=== PATIENT | female | born 1955 | race Caucasian/White ===

== ENCOUNTER 2017-01-29 17:49 | Inpatient (IN) | payer MEDICARE ==
--- NOTE | 2017-01-29 18:02 | ER Document Report ---
ED Medical Screen (RME) - General Stated Complaint: DIARRHEA,VOMITING Notes: 61 yo female c/o diarrhea x 2 weeks, vomiting x 1 day. + hives today no blood or mucus in diarrhea. no fever. no abdominal pain pt recently finished course of doxycycline for finger infection pt hypotensive 73/51, HR 107
[2017-01-29 18:39] LABS: HEMATOCRIT 45.2 % (36.0-47.0); HEMOGLOBIN 14.5 g/dL (12.0-15.5); HGB HCT DIFFERENCE -1.7; MEAN CORPUSCULAR HEMOGLOBIN 26.9 pg (27.0-33.4); MEAN CORPUSCULAR HGB CONC 32.2 g/dL (32.0-36.0); MEAN CORPUSCULAR VOLUME 84 fl (80-97); RED CELL DISTRIBUTION WIDTH 13.3 % (11.5-14.0); WHITE BLOOD COUNT 23.2 10^3/uL (4.0-10.5)
[2017-01-29 18:56] LABS: ALANINE AMINOTRANSFERASE 22 U/L (9-52); ALBUMIN 3.1 g/dL (3.5-5.0); ALKALINE PHOSPHATASE 74 U/L (38-126); ANION GAP 18 (5-19); ASPARTATE AMINO TRANSFERASE 21 U/L (14-36); BILIRUBIN,DIRECT 0.4 mg/dL (0.0-0.4); BILIRUBIN,TOTAL 0.7 mg/dL (0.2-1.3); BLOOD UREA NITROGEN 29 mg/dL (7-20); CALCIUM 8.9 mg/dL (8.4-10.2); CARBON DIOXIDE 21 mmol/L (22-30); CHLORIDE 93 mmol/L (98-107); CREATININE RESULT 2.45 mg/dL (0.52-1.25); GLUCOSE 154 mg/dL (75-110); POTASSIUM 4.9 mmol/L (3.6-5.0); SODIUM 131.9 mmol/L (137-145); TOTAL PROTEIN 5.8 g/dL (6.3-8.2)
[2017-01-29 19:17] LABS: BASOPHILS % (MANUAL) 0 % (0-2); EOSINOPHILS % (MANUAL) 0 % (0-6); LYMPHOCYTES % (MANUAL) 2 % (13-45); TOTAL CELLS COUNTED 100
[2017-01-29 19:26] LABS: TOXIC GRANULATION 1+; TOXIC VACUOLATION PRESENT
[2017-01-29 19:27] LABS: BAND NEUTROPHILS % (MANUAL) 23 % (3-5); OVALOCYTES SLIGHT; POIKILOCYTOSIS SLIGHT
[2017-01-29] MEDS ORDERED: RINGERS SOLUTION,LACTATED 1,000 ML IV ONE (20:47)
--- NOTE | 2017-01-29 20:56 | ER Document Report ---
ED GI/ - General Mode of Arrival: Ambulatory Information source: Patient TRAVEL OUTSIDE OF THE [place] IN LAST 30 DAYS: No - HPI Patient complains to provider of: Diarrhea Associated symptoms: Other - See above <ROSA M GARCÍA - Last Filed: 01/29/17 21:35> <CHIDI AVERY - Last Filed: 01/30/17 03:31> - General Chief Complaint: Diarrhea Stated Complaint: DIARRHEA,VOMITING Notes: Patient is a 61 year old female, with a past medical history including MS, who presents to the emergency department complaining of diarrhea onset 2 weeks ago. Patient had surgery on her right 3rd finger last month and was put on doxycycline which she was subsequently taken off of 4 days later, then was put on clindamycin which she finished about 12 days ago. Patient also complains of vomiting, rash with diffuse itching, and nausea. Patient states that she started taking a probiotic smoothie to help with the diarrhea 2 weeks ago which did not help and she stopped after a week. Patient reports this past week she has been unable to eat well or drink. Patient denies abdominal pain. Patient states that along with her medications she takes a Copaxone shot. Patient's PCP , who recently retired, is back in [place], she is currently visiting the area. ( ROSA M GARCÍA) - Related Data Allergies/Adverse Reactions: sulfamethoxazole [From Bactrim] Adverse Reaction (Unknown, Verified 01/29/17 23: 24) INTERACTION W/MS Penicillins Adverse Reaction (Verified 01/29/17 17:59) trimethoprim [From Bactrim] Adverse Reaction (Verified 01/29/17 23:23) Home Medications: Current Home Medications Cholecalciferol (Vitamin D3) [Vitamin D3 2000 unit Tablet] 1 tab PO BID [History] Dalfampridine [Ampyra] 1 tab PO BID 01/30/17 [History] Glatiramer Acetate [Copaxone Inj/Pf 20 mg/1Ml Disp Syrg] 1 dose SUBCUT DAILY [History] Levothyroxine Sodium [Synthroid 0.075 mg Tablet] 1 tab PO QAM 01/30/17 [History] Lutein/Zeaxanthin [Lutein-Zeaxanthin 25-5 mg Sfgl] 1 cap PO QAM 01/30/17 [ History] Naproxen 1 tab PO BID 01/30/17 [History] Omeprazole 1 cap PO QAM 01/30/17 [History] Tizanidine HCl [Zanaflex] 1 cap PO BID 01/30/17 [History] Venlafaxine HCl [Venlafaxine HCl ER] 1 cap PO QAM 01/30/17 [History] Past Medical History - General Information source: Patient - Social History Smoking Status: Never Smoker Frequency of alcohol use: None Drug Abuse: None Family History: Reviewed & Not Pertinent Patient has suicidal ideation: No Patient has homicidal ideation: No Musculoskeltal Medical History: Reports Hx Multiple Sclerosis Past Surgical History: Reports: Hx Orthopedic Surgery - R 3rd finger <ROSA M GARCÍA - Last Filed: 01/29/17 21:35> Review of Systems - Review of Systems Constitutional: No symptoms reported EENT: No symptoms reported Cardiovascular: No symptoms reported Respiratory: No symptoms reported Gastrointestinal: See HPI, Diarrhea, Nausea, Vomiting. denies: Abdominal pain Genitourinary: No symptoms reported Female Genitourinary: No symptoms reported Musculoskeletal: No symptoms reported Skin: See HPI, Rash - with itching Hematologic/Lymphatic: No symptoms reported Neurological/Psychological: No symptoms reported -: Yes All other systems reviewed and negative <ROSA M GARCÍA - Last Filed: 01/29/17 21:35> Physical Exam - Vital signs Interpretation: Hypotensive - General General appearance: Appears well, Alert - HEENT Head: Normocephalic, Atraumatic Mucous membranes: Dry - Respiratory Respiratory status: No respiratory distress Chest status: Nontender Breath sounds: Normal Chest palpation: Normal - Cardiovascular Rhythm: Regular Heart sounds: Normal auscultation Murmur: No - Abdominal Inspection: Normal Distension: No distension Bowel sounds: Normal Tenderness: Nontender Organomegaly: No organomegaly - Neurological Neuro grossly intact: Yes Cognition: Normal Orientation: AAOx4 [place] Coma Scale Eye Opening: Spontaneous [place] Coma Scale Verbal: Oriented [place] Coma Scale Motor: Obeys Commands [place] Coma Scale Total: 15 Speech: Normal - Psychological Associated symptoms: Normal affect, Normal mood - Skin Skin Temperature: Warm Skin Moisture: Dry Skin irregularity: Rash - Diffuse urticaria <ROSA M GARCÍA - Last Filed: 01/29/17 21:35> Course - Laboratory Result Diagrams: 01/29/17 18:16 01/29/17 18:16 <ROSA M GARCÍA - Last Filed: 01/29/17 21:35> - Laboratory Result Diagrams: 01/30/17 00:40 01/30/17 00:40 <CHIDI AVERY - Last Filed: 01/30/17 03:31> - Re-evaluation Re-evalutation: 01/29 Patient comes in with hypotension, lightheadedness, diarrhea for 2 weeks, and nausea. Symptoms and blood work consistent with C. difficile colitis. I have been unable to obtain a stool sample from this patient. Patient also with some acute renal insufficiency. Patient is responding well to fluid boluses. Patient also has a rash which she says is due to stress. She has been given Benadryl with good response. Patient due to hypotension, leukocytosis will be admitted to the hospital service for evaluation. Patient is amenable to this plan. Stable at time of admission. Flagyl was started. (CHIDI AVERY ) - Vital Signs Vital signs: Temp Pulse Resp BP Pulse Ox 98.1 F 105 H 17 101/57 L 96 01/30/17 00:00 01/29/17 18:04 01/30/17 02:00 01/30/17 02:00 01/30/17 02:00 - Laboratory Laboratory results interpreted by me: 01/29/17 01/29/17 01/29/17 18:16 18:16 18:16 WBC 23.2 H RBC 5.40 H MCH 26.9 L Band Neutrophils % 23 H Lymphocytes % (Manual) 2 L Metamyelocytes % 1 H Abs Neuts (Manual) 21.3 H Sodium 131.9 L Chloride 93 L Carbon Dioxide 21 L BUN 29 H Creatinine 2.45 H Est GFR ( Amer) 24 L Est GFR (Non-Af Amer) 20 L Glucose 154 H Magnesium 1.5 L Creatine Kinase CK-MB (CK-2) Total Protein 5.8 L Albumin 3.1 L 01/29/17 01/29/17 18:16 18:16 WBC RBC MCH Band Neutrophils % Lymphocytes % (Manual) Metamyelocytes % Abs Neuts (Manual) Sodium Chloride Carbon Dioxide BUN Creatinine Est GFR ( Amer) Est GFR (Non-Af Amer) Glucose Magnesium Creatine Kinase 159 H CK-MB (CK-2) 6.95 H Total Protein Albumin Critical Care Note - Critical Care Note Total time excluding time spent on procedures (mins): 35 - evaluation and management of hypotension, multiple re-evaluations, coordination of admission, counseling patient <CHIDI AVERY - Last Filed: 01/30/17 03:31> Discharge <ROSA M GARCÍA - Last Filed: 01/29/17 21:35> - Discharge Admitting Provider: Hospitalist Unit Admitted: IMCU <CHIDI AVERY - Last Filed: 01/30/17 03:31> - Discharge Clinical Impression: Nausea, Multiple sclerosis ARF (acute renal failure) Qualifiers: Acute renal failure type: unspecified Qualified Code(s): N17.9 - Acute kidney failure, unspecified Diarrhea Qualifiers: Diarrhea type: unspecified type Qualified Code(s): R19.7 - Diarrhea, unspecified Disposition: ADMITTED INPATIENT Scribe Attestation: 01/30/17 03:31 I personally performed the services described in the documentation, reviewed and edited the documentation which was dictated to the scribe in my presence, and it accurately records my words and actions. (CHIDI AVERY) Scribe Documentation - Scribe Written by Pablo:: pablo Sandhu, 01/29/17, [id number] acting as scribe for :: Tao <ROSA M GARCÍA - Last Filed: 01/29/17 21:35>
[2017-01-29] MEDS ORDERED: NORMAL SALINE 1000 ML 1,000 ML IV ONE (20:59)
[2017-01-29] MEDS ORDERED: ONDANSETRON HCL INJ/PF 4 MG/2 ML SDV IV ONE (21:47)
[2017-01-29] MEDS ORDERED: DIPHENHYDRAMINE HCL 50 MG/ML VIAL IV ONE (21:47)
[2017-01-29] MEDS ORDERED: METRONIDAZOLE 500 MG/NS RTU 100 ML IV ONE (21:49)
[2017-01-29] MEDS ORDERED: NORMAL SALINE 1000 ML 2,000 ML IV ONE (22:50)
[2017-01-29 22:53] LABS: ADD ON TESTING BLD IN LAB ACKNOWLEDGE
[2017-01-29 23:19] LABS: MAGNESIUM 1.5 mg/dL (1.6-2.3)
--- NOTE | 2017-01-29 23:35 | PDOC H&P ---
History of Present Illness Admission Date/PCP: 01/29/17 22:02 PCPD None Patient complains of: N/V/D History of Present Illness: SOFY CARRASCO is a 61 year old female female from [place], visiting relatives in the area, with underlying multiple sclerosis, easy bruising, arthritis, hypothyroidism, and mild anxiety and depression, without suicidal or homicidal ideation, who presents to the emergency room for evaluation of above complaints. Last month underwent right third finger surgery. Was put on doxycycline postoperatively. Was taken off after 4 days due to swelling of the finger and put on a one-week course of clindamycin, which she finished about 12 days ago. She describes a 2 week history of multiple episodes of diarrhea, combined with nausea and some vomiting, although mostly the vomiting as dry heaves. No blood in the emesis or diarrhea. She had a subjective fever 2 days ago, although no ami chills. Diarrhea is basically new for her. No history of C. difficile. Was noted to be hypotensive, with systolic pressures in the 70s upon initial arrival, but has responded nicely to IV fluid. Denies abdominal pain with the diarrhea. noted to have a serpiginous macular slightly erythematous rash, primarily on the anterior aspect of her lower extremities, and also the ventral surface of her forearms. Quite difficult to pin the patient down exactly about this rash. Gives contradictory statements to both myself and the emergency room physician , but states that she sometimes gets hives with itching, which she experienced last night, along with an occasional rash. Again, a quite difficult historian concerning this rash. Minimal itching today. Currently resting quietly, stating she does feel a bit better. Denies any chronic renal problems. Patient has been discussed with emergency room physician who evaluated the patient. . Laboratory results are listed in [facility] and are reviewed. X-ray summary results renal ultrasound is pending. EKG pending. Social history/personal habits: . 3 children. Unemployed. No use of the back of alcohol or illicit drugs. Allergies/adverse reactions are listed in [facility] and are reviewed. Home medications are reviewed from a handwritten note by the patient and are to be reconciled by nursing staff or compounding pharmacy technician in [facility] [employer]. Home medications initially autopopulated into [employer] may not accurately reflect patient's true medications, dosages, and/or frequencies. Compliant with medications. REVIEW OF SYSTEMS: Constitutional: See history and present illness. Eyes: Wears glasses. ENT: No swallowing problems or complaints. No hearing problems or complaints. Pulmonary: No current complaints. Cardiovascular: No current complaints, including chest pain. Gastrointestinal: See history and present illness. Skin: See history and present illness. Hematologic: Easy bruising. Neurologic: See history and present illness. Decreased light touch sensation in her lower extremities. Sometimes is able to ambulate unassisted, but at other times needs a cane or walker. Musculoskeletal: Joint pain from arthritis. Psychiatric: Mild Anxiety depression; denies suicidal or homicidal ideation. Endocrine: No current complaints, including polyuria. Genitourinary: No current complaints, including dysuria. PHYSICAL EXAMINATION: 5 feet 7 inches tall. 61.8 kg. BMI 21.3 kg/m. Temperature 97.4. Blood pressure 123/64. Pulse 92 and regular. 99% saturation on room air. Respirations are 20 and unlabored. Well-nourished well-developed female appearing approximately her stated age. Appears to feel a bit under the weather, so to speak. Pleasant awake alert and cooperative. Mildly anxious without agitation. Emergency room physician is present in the room for a time and examines the rash noted on patient's extremities, and feels these are consistent with hives. Female emergency room nurse Sanjuana is present. Skin is warm and dry. No subcutaneous nodules palpated. Has several mild excoriations on her upper extremities from scratching. Has scattered irregular somewhat serpiginous bordered slightly inflamed macular areas primarily on the dorsal surfaces of her lower extremities and ventral surfaces of her forearms. No evidence of underlying infection. No weeping or blistering. ENT: Hearing grossly normal to normal conversation. Tongue midline on protrusion pink and slightly tacky. Eyes: No scleral icterus. Pupils equal and reactive to light at 4 mm. [place] conjunctivae. Neck is supple and nontender to gentle active range of motion and palpation. Midline trachea. No palpable thyroid nodule mass enlargement or tenderness. Lymphatic: No palpable cervical or clavicular nodes. Neck and lymphatic exams limited by patient body habitus. Psychiatric: Reasonable insight into acute and chronic medical issues. Oriented to time location and why here. See history and present illness, also. Lungs: Auscultation reveals clear and equal breath sounds bilaterally. No use of accessory respiratory muscles. Cardiovascular: Heart regular rate and rhythm, without gallop murmur or rub. No carotid or abdominal aortic bruits. No ankle or pedal edema. Faintly palpable dorsalis pedis pulses. Abdomen: soft, , slightly distended nontender with positive bowel sounds. Unable to adequately evaluate abdomen for masses or organomegaly due to distention. Extremities: Feet are warm and dry. No calf tenderness to compression. No grossly obvious visual evidence of calf swelling. Gentle manipulation of lower extremities fails to reveal any obvious evidence of injury or instability to knees hips or ankles. Neurologic: Moves upper extremities grossly normally. Patellar reflexes absent. Absent Babinski. Light touch is decreased at her feet, which is a chronic finding and without recent change, according to patient. Dorsiflexion and plantarflexion of feet 5 / 5 and symmetric. Past Medical History Cardiac Medical History: Denies: Congestive Heart Failure, DVT, Myocardial Infarction, Hyperlipidema, Hypertension, Pulmonary Embolism Pulmonary Medical History: Denies: Asthma, Chronic Obstructive Pulmonary Disease (COPD) EENT Medical History: Reports: Eyes - Glasses Denies: Ears, Throat Neurological Medical History: Reports: Multiple Sclerosis Denies: Hemorrhagic CVA, Ischemic CVA, Seizures Endocrine Medical History: Reports: Hypothyroidism Denies: Diabetes Mellitus Type 1, Diabetes Mellitus Type 2, Hyperthyroidism Renal/ Medical History: Reports: None GI Medical History: Denies: Cirrhosis, Gastroesophageal Reflux Disease, Hepatitis, Peptic Ulcer Disease Musculoskeltal Medical History: Reports: Arthritis Skin Medical History: Reports: Other - See history and present illness, 2016. Psychiatric Medical History: Reports: Depression, General Anxiety Disorder Denies: Alcohol Dependency, Substance Abuse, Tobacco Dependency Hematology: Reports: Other - Easy bruising Infectious Medical History: Denies: Hepatitis B, Hepatitis C Past Surgical History Past Surgical History: Reports: Orthopedic Surgery - R 3rd finger, right knee Social History Information Source: Patient, Emergency Med Personnel, [facility] Records Smoking Status: Never Smoker Frequency of Alcohol Use: None Drugs: None - Advance Directive Resuscitation Status: Full Code Surrogate healthcare decision maker:: Kaelyn Carrasco Family History Family History: Reviewed & Not Pertinent Parental Family History Reviewed: Yes Children Family History Reviewed: Yes Sibling(s) Family History Reviewed.: Yes Medication/Allergy Home Medications: RX: Cholecalciferol (Vitamin D3) [D3-2000] 2,000 unit PO QAM 01/30/17 RX: Dalfampridine [Ampyra] 10 mg PO BID 01/30/17 RX: Glatiramer Acetate [Copaxone Inj/Pf 20 mg/1Ml Disp.syrg] 20 mg SQ DAILY RX: Levothyroxine Sodium [Synthroid 0.075 mg Tablet] 0.075 mg PO QAM 01/30/17 RX: Lutein/Zeaxanthin [Lutein-Zeaxanthin 25-5 mg Sfgl] 1 cap PO QAM 01/30/17 RX: Omeprazole 20 mg PO QAM 01/30/17 RX: Tizanidine HCl [Zanaflex] 2 mg PO NOON PRN 01/30/17 RX: Tizanidine HCl [Zanaflex] 2 mg PO QAM 01/30/17 RX: Tizanidine HCl [Zanaflex] 4 mg PO QHS 01/30/17 RX: Venlafaxine HCl [Venlafaxine HCl ER] 150 mg PO QAM 01/30/17 Acidoph/L.bulg/Bif.b/S.thermop [Bacid Caplet] 1 each PO BID #16 tablet 02/03/17 RX: Loperamide HCl [Imodium 2 mg Capsule] 2 mg PO Q6HP PRN capsule 02/03/17 RX: Metronidazole [Flagyl 500 mg Tablet] 500 mg PO Q6H #32 tablet 02/03/17 Allergies/Adverse Reactions: sulfamethoxazole [From Bactrim] Adverse Reaction (Unknown, Verified 01/29/17 23: 24) INTERACTION W/MS Penicillins Adverse Reaction (Verified 01/29/17 17:59) trimethoprim [From Bactrim] Adverse Reaction (Verified 01/29/17 23:23) Physical Exam Vital Signs: Temp Pulse Resp BP Pulse Ox 97.4 F 105 H 19 131/69 H 98 01/29/17 18:04 01/29/17 18:04 01/29/17 21:31 01/29/17 21:31 01/29/17 21:31 Assessment & Plan - Diagnosis (1) Rash Is this a current diagnosis for this admission?: YesPlan: Follow clinically for the present time. (2) Bandemia Is this a current diagnosis for this admission?: YesPlan: Suspected due to underlying C. difficile. Blood and stool cultures. Urine culture also if necessary, with urinalysis pending. (3) Leukocytosis Qualifiers: Leukocytosis type: bandemia Qualified Code(s): D72.825 - Bandemia Is this a current diagnosis for this admission?: YesPlan: As above. Will hold antibiotics for present time, with stool for C. difficile pending. (4) Nausea vomiting and diarrhea Is this a current diagnosis for this admission?: YesPlan: IV fluids. Stool for C. difficile, white cells, and culture and sensitivity pending. I have strongly encouraged patient not to get out of bed without notifying staff , to avoid a fall with injury. Knee high SCDs for DVT prophylaxis, [along with subcutaneous heparin. Impression and plans were discussed with patient, who concurs. Time spent in evaluation and management of patient: 68 minutes. (5) Renal failure Is this a current diagnosis for this admission?: YesPlan: Renal ultrasound pending. IV fluids. Follow-up chemistry. Likely prerenal in origin. (6) Multiple sclerosis Is this a current diagnosis for this admission?: YesPlan: Resume home medications as appropriate once these have been determined and reviewed. - Inpatient Certification Based on my medical assessment, after consideration of the patient's comorbidities, presenting symptoms, or acuity I expect that the services needed warrant INPATIENT care.: Yes I certify that my determination is in accordance with my understanding of Medicare's requirements for reasonable and necessary INPATIENT services [42 CFR 412.3e].: Yes Medical Necessity: Need Close Monitoring Due to Risk of Patient Decompensation, Need For IV Fluids, Need For Continuous Telemetry Monitoring, Risk of Complication if Not Cared For in Hospital, Risk of Diagnosis Which Will Require Inpatient Eval/Care/Monitoring Post Hospital Care: D/C or Transfer Summary
[2017-01-29] MEDS ORDERED: MAGNESIUM SULFATE/D5W 1 G/100 ML RTUPB IV ONE (23:45)
[2017-01-29] MEDS ORDERED: ACETAMINOPHEN 325 MG TABLET PO PRN (23:47)
[2017-01-29 23:58] LABS: CREATINE KINASE MB 6.95 ng/mL (<4.55); TROPONIN I 0.021 ng/mL
[2017-01-30 00:50] LABS: ABSOLUTE MONOCYTES (AUTO) 0.7 10^3/uL (0.1-1.4); ABSOLUTE NEUT (AUTO) 8.9 10^3/uL (1.7-8.2); BASOPHILS % (AUTO) 0.1 % (0-2); EOSINOPHILS % (AUTO) 0.1 % (0-6); HEMATOCRIT 36.6 % (36.0-47.0); HGB HCT DIFFERENCE -0.3; LYMPHOCYTES % (AUTO) 9.8 % (13-45); MEAN CORPUSCULAR HEMOGLOBIN 27.6 pg (27.0-33.4); MEAN CORPUSCULAR HGB CONC 33.1 g/dL (32.0-36.0); MEAN CORPUSCULAR VOLUME 83 fl (80-97); MONOCYTES % (AUTO) 6.1 % (3-13); RED BLOOD COUNT 4.39 10^6/uL (3.72-5.28); RED CELL DISTRIBUTION WIDTH 13.6 % (11.5-14.0); SEGMENTED NEUTROPHILS % (AUTO) 83.9 % (42-78); WHITE BLOOD COUNT 10.6 10^3/uL (4.0-10.5)
[2017-01-30 01:01] LABS: ANION GAP 8 (5-19); BLOOD UREA NITROGEN 32 mg/dL (7-20); CALCIUM 7.4 mg/dL (8.4-10.2); CARBON DIOXIDE 21 mmol/L (22-30); CHLORIDE 103 mmol/L (98-107); CREATININE RESULT 2.26 mg/dL (0.52-1.25); GLUCOSE 123 mg/dL (75-110); POTASSIUM 4.3 mmol/L (3.6-5.0); SODIUM 132.1 mmol/L (137-145)
[2017-01-30 01:03] LABS: HEMOGLOBIN 12.1 g/dL (12.0-15.5)
[2017-01-30] MEDS: NORMAL SALINE 1000 ML 1,000 ML IV PRN ×3 (01:42→20:05)
[2017-01-30 02:18] LABS: ADD ON TESTING BLD IN LAB ACKNOWLEDGE
[2017-01-30 02:26] LABS: CREATINE KINASE 148 U/L (30-135)
[2017-01-30 03:03] LABS: CREATINE KINASE MB 6.45 ng/mL (<4.55)
[2017-01-30 03:04] LABS: TROPONIN I < 0.012 ng/mL
[2017-01-30] MEDS ORDERED: NORMAL SALINE 1000 ML 2,000 ML IV ONE (04:45)
[2017-01-30 06:55] LABS: ABSOLUTE LYMPHOCYTES (AUTO) 1.1 10^3/uL (0.5-4.7); ABSOLUTE MONOCYTES (AUTO) 0.6 10^3/uL (0.1-1.4); ABSOLUTE NEUT (AUTO) 6.5 10^3/uL (1.7-8.2); BASOPHILS % (AUTO) 0.3 % (0-2); EOSINOPHILS % (AUTO) 0.3 % (0-6); HEMATOCRIT 32.8 % (36.0-47.0); HEMOGLOBIN 11.2 g/dL (12.0-15.5); HGB HCT DIFFERENCE 0.8; LYMPHOCYTES % (AUTO) 13.6 % (13-45); MEAN CORPUSCULAR HEMOGLOBIN 28.3 pg (27.0-33.4); MEAN CORPUSCULAR HGB CONC 34.1 g/dL (32.0-36.0); MEAN CORPUSCULAR VOLUME 83 fl (80-97); MONOCYTES % (AUTO) 6.8 % (3-13); RED BLOOD COUNT 3.95 10^6/uL (3.72-5.28); RED CELL DISTRIBUTION WIDTH 13.9 % (11.5-14.0); WHITE BLOOD COUNT 8.2 10^3/uL (4.0-10.5)
[2017-01-30 07:12] LABS: ANION GAP 8 (5-19); BLOOD UREA NITROGEN 28 mg/dL (7-20); CARBON DIOXIDE 19 mmol/L (22-30); CHLORIDE 109 mmol/L (98-107); CREATININE RESULT 1.63 mg/dL (0.52-1.25); GLUCOSE 99 mg/dL (75-110); POTASSIUM 4.7 mmol/L (3.6-5.0); SODIUM 135.8 mmol/L (137-145)
--- NOTE | 2017-01-30 08:08 | EKG REPORT ---
SEVERITY:- ABNORMAL ECG - SINUS RHYTHM LEFT ATRIAL ABNORMALITY : Confirmed by: Guero Sidhu MD 30-Jan-2017 08:07:55
--- NOTE | 2017-01-30 08:31 | PDOC PROGRESS REPORT ---
Subjective Progress Note for:: 01/30/17 Subjective:: Able to void freely this morning. Patient has no hematuria or painful urination. Patient reports prolapsed bladder for about 10 years. Denies any chills or fever at this time. Diarrhea still persists. Started after completing antibiotic with clindamycin. Patient reports chronic urticaria and rash sometimes seasonal, tried multiple antihistamines and Benadryl works the most cautious sedation. Has not tried steroids however. Physical Exam Vital Signs: Temp Pulse Resp BP Pulse Ox 98.2 F 91 16 95/56 L 94 01/30/17 07:20 01/30/17 07:20 01/30/17 07:20 01/30/17 07:20 01/30/17 07:20 General appearance: PRESENT: no acute distress, cooperative Head exam: PRESENT: normocephalic Eye exam: PRESENT: EOMI Mouth exam: PRESENT: dry mucosa, neck supple Neck exam: ABSENT: JVD Respiratory exam: PRESENT: clear to auscultation latoya. ABSENT: rhonchi, wheezes Cardiovascular exam: PRESENT: RRR. ABSENT: gallop GI/Abdominal exam: PRESENT: hyperactive bowel sounds, soft. ABSENT: distended Extremities exam: ABSENT: pedal edema Neurological exam: PRESENT: alert, awake, oriented to situation Skin exam: PRESENT: dry, warm, other - Macular rash both upper extremities and some on the lower extremities.. ABSENT: cyanosis Results Laboratory Results: 01/30/17 06:43 01/30/17 06:43 01/30/17 01/30/17 01/30/17 00:40 00:40 06:43 WBC 10.6 H 8.2 RBC 4.39 3.95 Hgb 12.1 D 11.2 L Hct 36.6 32.8 L MCV 83 83 MCH 27.6 28.3 MCHC 33.1 34.1 RDW 13.6 13.9 Plt Count 175 133 L Seg Neutrophils % 83.9 H 79.0 H Lymphocytes % 9.8 L 13.6 Monocytes % 6.1 6.8 Eosinophils % 0.1 0.3 Basophils % 0.1 0.3 Absolute Neutrophils 8.9 H 6.5 Absolute Lymphocytes 1.0 1.1 Absolute Monocytes 0.7 0.6 Absolute Eosinophils 0.0 0.0 Absolute Basophils 0.0 0.0 Sodium 132.1 L Potassium 4.3 Chloride 103 Carbon Dioxide 21 L Anion Gap 8 BUN 32 H Creatinine 2.26 H Est GFR ( Amer) 27 L Est GFR (Non-Af Amer) 22 L Glucose 123 H Calcium 7.4 L 01/30/17 06:43 WBC RBC Hgb Hct MCV MCH MCHC RDW Plt Count Seg Neutrophils % Lymphocytes % Monocytes % Eosinophils % Basophils % Absolute Neutrophils Absolute Lymphocytes Absolute Monocytes Absolute Eosinophils Absolute Basophils Sodium 135.8 L Potassium 4.7 Chloride 109 H Carbon Dioxide 19 L Anion Gap 8 BUN 28 H Creatinine 1.63 H Est GFR ( Amer) 39 L Est GFR (Non-Af Amer) 32 L Glucose 99 Calcium 7.0 L* 01/30/17 01/30/17 01/30/17 00:40 00:40 06:43 Creatine Kinase 148 H CK-MB (CK-2) 6.45 H Troponin I < 0.012 0.012 Impressions: Renal Ultrasound 01/29/17 00:00 IMPRESSION: No significant renal abnormalities were identified. Other findings as noted above Assessment & Plan - Diagnosis (1) ARF (acute renal failure) Qualifiers: Acute renal failure type: unspecified Qualified Code(s): N17.9 - Acute kidney failure, unspecified Is this a current diagnosis for this admission?: Yes (2) Diarrhea Qualifiers: Diarrhea type: unspecified type Qualified Code(s): R19.7 - Diarrhea, unspecified Is this a current diagnosis for this admission?: Yes (3) Leukocytosis Qualifiers: Leukocytosis type: bandemia Qualified Code(s): D72.825 - Bandemia Is this a current diagnosis for this admission?: Yes (4) Prolapse of bladder Is this a current diagnosis for this admission?: Yes (5) Hypocalcemia Is this a current diagnosis for this admission?: Yes (6) Hypothyroidism Qualifiers: Hypothyroidism type: acquired Qualified Code(s): E03.9 - Hypothyroidism, unspecified Is this a current diagnosis for this admission?: Yes (7) Anxiety and depression Is this a current diagnosis for this admission?: Yes (8) Multiple sclerosis Is this a current diagnosis for this admission?: Yes - Time Time Spent with patient: 25-34 minutes - Plan Summary Plan Summary: We will continue hydration. Check stool for Clostridium difficile toxin. Begin Flagyl and lactobacillus. Monitor creatinine. We'll try the patient on steroids. Continue supportive care. We will try steroids for the rash and give Benadryl as needed.
[2017-01-30 08:53] LABS: AMORPHOUS SEDIMENT,URINE TRACE /HPF; APPEARANCE,URINE CLOUDY; BILIRUBIN,URINE NEGATIVE (NEGATIVE); GLUCOSE, URINE NEGATIVE (NEGATIVE); KETONES,URINE TRACE mg/dL (NEGATIVE); LEUKOCYTE ESTERASE,URINE SMALL (NEGATIVE); NITRITE,URINE NEGATIVE (NEGATIVE); PROTEIN,URINE 30 mg/dL (NEGATIVE); URINE SPECIFIC GRAVITY 1.018; UROBILINOGEN,URINE NEGATIVE mg/dL (<2.0)
[2017-01-30] MEDS ORDERED: PREDNISONE 20 MG TABLET PO ONE (09:00)
--- NOTE | 2017-01-30 09:59 | PDOC CONSULTATION ---
Consultation Consult Date: 01/30/17 Consult reason:: Acute kidney injury in the setting of severe diarrhea. History of Present Illness Admission Date/PCP: 01/29/17 23:35 History of Present Illness: I have been asked to see Mrs. SOFY CARRASCO who is a 61 year old female female from [place], visiting relatives in the area, with underlying multiple sclerosis, easy bruising, arthritis, hypothyroidism, and mild anxiety and depression, without suicidal or homicidal ideation, who presents to the emergency room for evaluation ongoing severe diarrhea for the last couple of weeks which has recently been associated with increasing orthostasis and feeling weak. Last month underwent right third finger surgery in [place] and was complicated by an infection. Was put on doxycycline postoperatively. Was taken off after 4 days due to swelling of the finger and put on a one-week course of clindamycin, which she finished about 12 days ago. A couple of days into finishing her clindamycin she began to have multiple episodes of diarrhea, combined with nausea and some vomiting, although mostly the vomiting as dry heaves. No blood in the emesis or diarrhea. No history of abdominal pains fever chills or rigors. Since she is got active multiple sclerosis she is on multiple on multiple medications which also includes naproxen 500 mg twice a day that she has continued to take over that over this present illness. Diarrhea is basically new for her. No history of C. difficile in the past. On evaluation in the ER she was noted to be hypotensive, with systolic pressures in the 70s upon initial arrival, but has responded nicely IV fluid.Currently her blood pressures in the low 100 systolic and she is feeling a whole lot better when I see her in the ICU. Currently besides the IV fluids she is also on Flagyl pending C. difficile toxin assay. She says she has always had dizzy spells associated with her multiple sclerosis but in the last 2-3 days she has become much more worse and has been stumbling without any history of ami falls or presyncope. Has been noted to have a serpiginous macular slightly erythematous rash, primarily on the anterior aspect of her lower extremities, and also the ventral surface of her forearms. Minimal itching today. C Past Medical History Cardiac Medical History: Denies: DVT, Hyperlipidemia, Myocardial Infarction, Pulmonary Embolism Pulmonary Medical History: Denies: Asthma, Chronic Obstructive Pulmonary Disease (COPD) EENT Medical History: Reports: Eyes - Glasses, Other - Easy bruising Denies: Ears, Throat Neurological Medical History: Reports: Multiple Sclerosis Denies: Hemorrhagic CVA, Ischemic CVA, Seizures Endocrine Medical History: Reports: Hypothyroidism Denies: Diabetes Mellitus Type 1, Diabetes Mellitus Type 2, Hyperthyroidism Renal/ Medical History: Reports: None GI Medical History: Denies: Cirrhosis, Gastroesophageal Reflux Disease, Hepatitis, Peptic Ulcer Disease Musculoskeltal Medical History: Reports: Arthritis Skin Medical History: Reports: Other - See history and present illness, 2016. Psychiatric Medical History: Reports: Depression, General Anxiety Disorder Denies: Alcohol Dependency, Substance Abuse, Tobacco Dependency Infectious Medical History: Denies: Hepatitis B, Hepatitis C Past Surgical History Past Surgical History: Reports: Orthopedic Surgery - R 3rd finger, right knee Social History Smoking Status: Never Smoker Frequency of Alcohol Use: None Drugs: None - Advance Directive Resuscitation Status: Full Code Family History Parental Family History Reviewed: Yes - No known history of CKD Children Family History Reviewed: Yes Sibling(s) Family History Reviewed.: Yes Medication/Allergy Allergies/Adverse Reactions: sulfamethoxazole [From Bactrim] Adverse Reaction (Unknown, Verified 01/29/17 23: 24) INTERACTION W/MS Penicillins Adverse Reaction (Verified 01/29/17 17:59) trimethoprim [From Bactrim] Adverse Reaction (Verified 01/29/17 23:23) Review of Systems Review of Systems: Constitutional: PRESENT: as per HPI. ABSENT: chills, fever(s), headache(s), weight gain, weight loss Eyes: ABSENT: visual disturbances Ears: ABSENT: hearing changes Cardiovascular: ABSENT: chest pain, dyspnea on exertion, edema, orthropnea, palpitations Respiratory: ABSENT: cough, hemoptysis Gastrointestinal: ABSENT: abdominal pain, constipation, hematemesis, hematochezia, nausea, vomiting Genitourinary: ABSENT: dysuria, hematuria Musculoskeletal: ABSENT: joint swelling Integumentary: ABSENT: rash, wounds Neurological: ABSENT: abnormal gait, abnormal speech, confusion, focal weakness , syncope Psychiatric: ABSENT: anxiety, depression, homicidal ideation, suicidal ideation Endocrine: ABSENT: cold intolerance, heat intolerance, polydipsia, polyuria Hematologic/Lymphatic: ABSENT: easy bleeding, easy bruising, lymphadenopathy Physical Exam Vital Signs: Temp Pulse Resp BP Pulse Ox 98.1 F 100 18 107/54 L 100 01/30/17 08:44 01/30/17 08:44 01/30/17 08:44 01/30/17 08:44 01/30/17 08:44 Intake & Output 01/29/17 01/30/17 01/31/17 06:59 06:59 06:59 Weight 71.1 kg General appearance: PRESENT: no acute distress Eye exam: PRESENT: conjunctiva pink, EOMI, PERRLA. ABSENT: nystagmus, scleral icterus Ear exam: PRESENT: normal external ear exam Neck exam: ABSENT: lymphadenopathy, meningismus, tenderness, thyromegaly, tracheal deviation Respiratory exam: PRESENT: chest wall tenderness. ABSENT: crackles, rhonchi Cardiovascular exam: PRESENT: +S1, +S2 GI/Abdominal exam: PRESENT: soft. ABSENT: mass, organomegaly, tenderness Neurological exam: PRESENT: awake, oriented to person, oriented to place, oriented to time Skin exam: PRESENT: dry. ABSENT: erythema, mottled Results Laboratory Results: 01/30/17 06:43 01/30/17 06:43 01/30/17 01/30/17 01/30/17 00:40 00:40 06:43 WBC 10.6 H 8.2 RBC 4.39 3.95 Hgb 12.1 D 11.2 L Hct 36.6 32.8 L MCV 83 83 MCH 27.6 28.3 MCHC 33.1 34.1 RDW 13.6 13.9 Plt Count 175 133 L Seg Neutrophils % 83.9 H 79.0 H Lymphocytes % 9.8 L 13.6 Monocytes % 6.1 6.8 Eosinophils % 0.1 0.3 Basophils % 0.1 0.3 Absolute Neutrophils 8.9 H 6.5 Absolute Lymphocytes 1.0 1.1 Absolute Monocytes 0.7 0.6 Absolute Eosinophils 0.0 0.0 Absolute Basophils 0.0 0.0 Sodium 132.1 L Potassium 4.3 Chloride 103 Carbon Dioxide 21 L Anion Gap 8 BUN 32 H Creatinine 2.26 H Est GFR ( Amer) 27 L Est GFR (Non-Af Amer) 22 L Glucose 123 H Calcium 7.4 L TSH Urine Color Urine Appearance Urine pH Ur Specific [place] Urine Protein Urine Glucose (UA) Urine Ketones Urine Blood Urine Nitrite Ur Leukocyte Esterase Urine WBC (Auto) Urine RBC (Auto) 01/30/17 01/30/17 01/30/17 06:43 06:43 08:22 WBC RBC Hgb Hct MCV MCH MCHC RDW Plt Count Seg Neutrophils % Lymphocytes % Monocytes % Eosinophils % Basophils % Absolute Neutrophils Absolute Lymphocytes Absolute Monocytes Absolute Eosinophils Absolute Basophils Sodium 135.8 L Potassium 4.7 Chloride 109 H Carbon Dioxide 19 L Anion Gap 8 BUN 28 H Creatinine 1.63 H Est GFR ( Amer) 39 L Est GFR (Non-Af Amer) 32 L Glucose 99 Calcium 7.0 L* TSH 3.00 Urine Color YELLOW Urine Appearance CLOUDY Urine pH 5.0 Ur Specific [place] 1.018 Urine Protein 30 H Urine Glucose (UA) NEGATIVE Urine Ketones TRACE H Urine Blood MODERATE H Urine Nitrite NEGATIVE Ur Leukocyte Esterase SMALL H Urine WBC (Auto) 27 Urine RBC (Auto) 13 01/30/17 01/30/17 01/30/17 00:40 00:40 06:43 Creatine Kinase 148 H CK-MB (CK-2) 6.45 H Troponin I < 0.012 0.012 Impressions: Renal Ultrasound 01/29/17 00:00 IMPRESSION: No significant renal abnormalities were identified. Other findings as noted above Assessment & Plan - Diagnosis (1) ARF (acute renal failure) Qualifiers: Acute renal failure type: unspecified Qualified Code(s): N17.9 - Acute kidney failure, unspecified Is this a current diagnosis for this admission?: YesPlan: Presentation of severe diarrhea leading to hypotension so this is suggestive of acute kidney injury. Additional insults from usage of naproxen during her present crisis. She is appropriately responding very well to fluid resuscitation.She is currently doing well on fluid resuscitation and hopefully should recover renal functions unless she has had severe NSAID nephropathy.Discussed with her about withholding this medications in the future in case is a similar presentation. Otherwise will continue present lines of management. Reviewed renal ultrasound which shows no evidence as of obstructive uropathy. She has a history of bladder prolapse. (2) Diarrhea Qualifiers: Diarrhea type: unspecified type Qualified Code(s): R19.7 - Diarrhea, unspecified Is this a current diagnosis for this admission?: YesPlan: Very likely C. difficile given the history of onset supposed to clindamycin. Awaiting serology. Patient currently on Flagyl. (3) Hypocalcemia Is this a current diagnosis for this admission?: YesPlan: Better values on correction to albumin. Monitor. No evidences of tetany. (4) Multiple sclerosis Is this a current diagnosis for this admission?: YesPlan: As per hospitalist. (5) Hypomagnesemia Plan: I am rechecking her magnesium which is quite likely to be low in and in which case we will replace .
[2017-01-30] MEDS ORDERED: TIZANIDINE HCL PO SCH (10:00)
[2017-01-30] MEDS ORDERED: CETIRIZINE 10 MG TABLET PO SCH (10:00)
[2017-01-30] MEDS: HEPARIN SOD (PORCINE) 5,000 UNIT/ML 1 ML SYRINGE SUBCUT SCH ×2 (10:24→21:57)
[2017-01-30] MEDS: DIPHENHYDRAMINE HCL 50 MG CAPSULE PO PRN ×2 (10:24→17:20)
[2017-01-30] MEDS: METRONIDAZOLE 500 MG TABLET PO SCH ×2 (10:25→17:20)
[2017-01-30] MEDS: LEVOTHYROXINE SODIUM 0.075 MG TABLET PO SCH (10:25)
[2017-01-30] MEDS: LACTOBACILLUS ACIDOPHILUS 250 MG TAB PO SCH ×2 (10:26→17:20)
[2017-01-30] MEDS: TIZANIDINE HCL 4 MG TABLET PO SCH ×2 (12:12→17:19)
[2017-01-30 12:40] LABS: ANION GAP 8 (5-19); BLOOD UREA NITROGEN 27 mg/dL (7-20); CALCIUM 7.2 mg/dL (8.4-10.2); CARBON DIOXIDE 18 mmol/L (22-30); CHLORIDE 110 mmol/L (98-107); CREATININE RESULT 1.29 mg/dL (0.52-1.25); GLUCOSE 88 mg/dL (75-110); MAGNESIUM 1.7 mg/dL (1.6-2.3); POTASSIUM 4.4 mmol/L (3.6-5.0); SODIUM 135.5 mmol/L (137-145)
[2017-01-30 17:42] LABS: PATH REVIEW PATHOLOGIST REVIEWED
[2017-01-30] MEDS ORDERED: VENLAFAXINE HCL 75 MG TABLET PO ONE (18:00)
[2017-01-30] MEDS: VENLAFAXINE HCL 75 MG CAP.SR.24H PO SCH (18:59)
[2017-01-30] MEDS: DALFAMPRIDINE 10 MG PO SCH (21:51)
[2017-01-31] MEDS: NORMAL SALINE 1000 ML 1,000 ML IV PRN ×4 (01:47→14:09)
[2017-01-31] MEDS: METRONIDAZOLE 500 MG TABLET PO SCH ×4 (04:17→18:39)
[2017-01-31] MEDS: TIZANIDINE HCL 4 MG TABLET PO SCH ×2 (09:45→18:06)
[2017-01-31] MEDS: LEVOTHYROXINE SODIUM 0.075 MG TABLET PO SCH (09:45)
[2017-01-31] MEDS: HEPARIN SOD (PORCINE) 5,000 UNIT/ML 1 ML SYRINGE SUBCUT SCH ×2 (09:45→21:38)
[2017-01-31] MEDS: LACTOBACILLUS ACIDOPHILUS 250 MG TAB PO SCH ×2 (09:45→18:06)
[2017-01-31] MEDS ORDERED: DALFAMPRIDINE 10 MG PO SCH (10:00)
[2017-01-31] MEDS ORDERED: VENLAFAXINE HCL 75 MG TABLET PO SCH (10:00)
[2017-01-31] MEDS: DALFAMPRIDINE 10 MG PO SCH ×2 (13:08→21:39)
--- NOTE | 2017-01-31 13:10 | PDOC PROGRESS REPORT ---
Subjective Progress Note for:: 01/31/17 Subjective:: Diarrhea still persists. Appetite however is better. Overall, fatigue and malaise likewise better. Denies any shortness of breath, nausea, vomiting, chills or fever. Denies any dysuria. Physical Exam Vital Signs: Temp Pulse Resp BP Pulse Ox 98.7 F 94 20 124/62 96 01/31/17 08:30 01/31/17 08:30 01/31/17 08:30 01/31/17 08:30 01/31/17 08:30 Intake & Output 01/30/17 01/31/17 02/01/17 06:59 06:59 06:59 Intake Total 4553 Output Total 600 Balance 3953 Weight 71.1 kg General appearance: PRESENT: no acute distress, cooperative Head exam: PRESENT: normocephalic Eye exam: PRESENT: EOMI Mouth exam: PRESENT: moist, neck supple Neck exam: ABSENT: JVD Respiratory exam: PRESENT: clear to auscultation latoya. ABSENT: rhonchi, wheezes Cardiovascular exam: PRESENT: RRR. ABSENT: gallop GI/Abdominal exam: PRESENT: hyperactive bowel sounds, soft. ABSENT: distended, tenderness Extremities exam: ABSENT: pedal edema Neurological exam: PRESENT: alert, awake, oriented to situation Skin exam: PRESENT: dry, warm. ABSENT: cyanosis Results Laboratory Results: 01/30/17 06:43 01/30/17 12:03 01/30/17 01/30/17 01/30/17 00:40 00:40 06:43 Creatine Kinase 148 H CK-MB (CK-2) 6.45 H Troponin I < 0.012 0.012 Impressions: Renal Ultrasound 01/29/17 00:00 IMPRESSION: No significant renal abnormalities were identified. Other findings as noted above Assessment & Plan - Diagnosis (1) ARF (acute renal failure) Qualifiers: Acute renal failure type: unspecified Qualified Code(s): N17.9 - Acute kidney failure, unspecified Is this a current diagnosis for this admission?: Yes (2) Diarrhea Qualifiers: Diarrhea type: unspecified type Qualified Code(s): R19.7 - Diarrhea, unspecified Is this a current diagnosis for this admission?: Yes (3) Leukocytosis Qualifiers: Leukocytosis type: bandemia Qualified Code(s): D72.825 - Bandemia Is this a current diagnosis for this admission?: Yes (4) Prolapse of bladder Is this a current diagnosis for this admission?: Yes (5) Hypocalcemia Is this a current diagnosis for this admission?: Yes (6) Hypothyroidism Qualifiers: Hypothyroidism type: acquired Qualified Code(s): E03.9 - Hypothyroidism, unspecified Is this a current diagnosis for this admission?: Yes (7) Anxiety and depression Is this a current diagnosis for this admission?: Yes (8) Multiple sclerosis Is this a current diagnosis for this admission?: Yes - Time Time Spent with patient: 25-34 minutes - Plan Summary Plan Summary: Flagyl 20 year as well as lactobacillus for Clostridium difficile toxin. We will try the patient on as needed Imodium. Continue hydration. Monitor creatinine. Begin diet. Continue supportive care.
[2017-01-31] MEDS: VENLAFAXINE HCL 75 MG CAP.SR.24H PO SCH (18:06)
[2017-02-01] MEDS: METRONIDAZOLE 500 MG TABLET PO SCH ×4 (01:57→21:06)
[2017-02-01 05:37] LABS: ANION GAP 9 (5-19); BLOOD UREA NITROGEN 16 mg/dL (7-20); CALCIUM 7.8 mg/dL (8.4-10.2); CARBON DIOXIDE 17 mmol/L (22-30); CHLORIDE 109 mmol/L (98-107); CREATININE RESULT 0.71 mg/dL (0.52-1.25); GLUCOSE 73 mg/dL (75-110); MAGNESIUM 1.8 mg/dL (1.6-2.3); POTASSIUM 3.9 mmol/L (3.6-5.0); SODIUM 135.1 mmol/L (137-145)
[2017-02-01] MEDS: NORMAL SALINE 1000 ML 1,000 ML IV PRN ×2 (06:25→21:07)
[2017-02-01] MEDS ORDERED: (PENDING PHARMACY ID) (Tizanidine Hcl [Zanaflex] 2 MG) PO PRN (09:58)
[2017-02-01] MEDS ORDERED: DALFAMPRIDINE 10 MG PO SCH (10:00)
--- NOTE | 2017-02-01 10:05 | PDOC PROGRESS REPORT ---
Subjective Progress Note for:: 02/01/17 Subjective:: Patient able to tolerate oral intake. Diarrhea however persist but not worse. Patient started to develop leg pain and some cramps. No chills or fever. No nausea or vomiting. No abdominal pain at this time. Physical Exam Vital Signs: Temp Pulse Resp BP Pulse Ox 98.3 F 86 16 140/74 H 95 02/01/17 03:56 02/01/17 03:56 02/01/17 03:56 02/01/17 03:56 02/01/17 03:56 Intake & Output 01/31/17 02/01/17 02/02/17 06:59 06:59 06:59 Intake Total 4553 4658 Output Total 600 275 Balance 3953 4383 Weight 71.1 kg 72.5 kg General appearance: PRESENT: no acute distress Head exam: PRESENT: normocephalic Eye exam: PRESENT: EOMI Mouth exam: PRESENT: moist, neck supple Respiratory exam: PRESENT: clear to auscultation latoya Cardiovascular exam: PRESENT: RRR. ABSENT: gallop GI/Abdominal exam: PRESENT: soft. ABSENT: distended Neurological exam: PRESENT: alert, awake, oriented to situation Skin exam: PRESENT: dry, warm. ABSENT: cyanosis Results Laboratory Results: 01/30/17 06:43 02/01/17 04:22 02/01/17 04:22 Sodium 135.1 L Potassium 3.9 Chloride 109 H Carbon Dioxide 17 L Anion Gap 9 BUN 16 Creatinine 0.71 Est GFR ( Amer) > 60 Est GFR (Non-Af Amer) > 60 Glucose 73 L Calcium 7.8 L Magnesium 1.8 01/30/17 01/30/17 01/30/17 00:40 00:40 06:43 Creatine Kinase 148 H CK-MB (CK-2) 6.45 H Troponin I < 0.012 0.012 Impressions: Renal Ultrasound 01/29/17 00:00 IMPRESSION: No significant renal abnormalities were identified. Other findings as noted above Assessment & Plan - Diagnosis (1) ARF (acute renal failure) Qualifiers: Acute renal failure type: unspecified Qualified Code(s): N17.9 - Acute kidney failure, unspecified Is this a current diagnosis for this admission?: Yes (2) Diarrhea Qualifiers: Diarrhea type: unspecified type Qualified Code(s): R19.7 - Diarrhea, unspecified Is this a current diagnosis for this admission?: Yes (3) Leukocytosis Qualifiers: Leukocytosis type: bandemia Qualified Code(s): D72.825 - Bandemia Is this a current diagnosis for this admission?: Yes (4) Prolapse of bladder Is this a current diagnosis for this admission?: Yes (5) Hypocalcemia Is this a current diagnosis for this admission?: Yes (6) Hypothyroidism Qualifiers: Hypothyroidism type: acquired Qualified Code(s): E03.9 - Hypothyroidism, unspecified Is this a current diagnosis for this admission?: Yes (7) Anxiety and depression Is this a current diagnosis for this admission?: Yes (8) Multiple sclerosis Is this a current diagnosis for this admission?: Yes - Time Time Spent with patient: 25-34 minutes - Plan Summary Plan Summary: We'll check electrolytes. We will resume home medications. Try Imodium as needed, continue lactobacillus and Flagyl. Increase intravenous fluids.
[2017-02-01] MEDS ORDERED: GLATIRAMER ACETATE SUBCUT ONE (11:00)
[2017-02-01] MEDS ORDERED: DISP SYRIN SUBCUT ONE (11:00)
[2017-02-01] MEDS: LEVOTHYROXINE SODIUM 0.075 MG TABLET PO SCH (11:05)
[2017-02-01] MEDS: LOPERAMIDE HCL 2 MG CAPSULE PO PRN (11:07)
[2017-02-01] MEDS: LACTOBACILLUS ACIDOPHILUS 250 MG TAB PO SCH ×2 (11:07→17:48)
[2017-02-01] MEDS: HEPARIN SOD (PORCINE) 5,000 UNIT/ML 1 ML SYRINGE SUBCUT SCH ×2 (11:11→21:03)
[2017-02-01] MEDS: DALFAMPRIDINE 10 MG PO SCH ×2 (11:14→21:07)
[2017-02-01] MEDS ORDERED: TIZANIDINE HCL 4 MG TABLET PO PRN (12:00)
[2017-02-01] MEDS: VENLAFAXINE HCL 75 MG CAP.SR.24H PO SCH (21:05)
[2017-02-01] MEDS: TIZANIDINE HCL 4 MG TABLET PO SCH (21:06)
[2017-02-01] MEDS ORDERED: (PENDING PHARMACY ID) (Tizanidine Hcl [Zanaflex] 4 MG) PO SCH (22:00)
[2017-02-02] MEDS: METRONIDAZOLE 500 MG TABLET PO SCH ×4 (00:34→19:10)
[2017-02-02 05:24] LABS: ANION GAP 11 (5-19); BLOOD UREA NITROGEN 6 mg/dL (7-20); CARBON DIOXIDE 20 mmol/L (22-30); CHLORIDE 106 mmol/L (98-107); CREATININE RESULT 0.59 mg/dL (0.52-1.25); GLUCOSE 82 mg/dL (75-110); POTASSIUM 3.5 mmol/L (3.6-5.0); SODIUM 136.8 mmol/L (137-145)
[2017-02-02] MEDS: LOPERAMIDE HCL 2 MG CAPSULE PO PRN (05:40)
[2017-02-02] MEDS: NORMAL SALINE 1000 ML 1,000 ML IV PRN (05:55)
[2017-02-02] MEDS: LEVOTHYROXINE SODIUM 0.075 MG TABLET PO SCH (07:27)
[2017-02-02] MEDS: TIZANIDINE HCL 4 MG TABLET PO SCH ×2 (07:27→21:06)
[2017-02-02] MEDS ORDERED: LUTEIN PO SCH (08:00)
[2017-02-02] MEDS ORDERED: LEVOTHYROXINE SODIUM 0.075 MG TABLET PO SCH (08:00)
[2017-02-02] MEDS ORDERED: (PENDING PHARMACY ID) (Tizanidine Hcl [Zanaflex] 2 MG) PO SCH (08:00)
[2017-02-02] MEDS ORDERED: ZEAXANTHIN PO SCH (08:00)
[2017-02-02] MEDS: LACTOBACILLUS ACIDOPHILUS 250 MG TAB PO SCH ×2 (10:42→17:42)
[2017-02-02] MEDS: GLATIRAMER ACETATE SUBCUT SCH (10:50)
[2017-02-02] MEDS: DISP SYRIN SUBCUT SCH (10:50)
[2017-02-02] MEDS: DALFAMPRIDINE 10 MG PO SCH ×2 (10:50→21:07)
[2017-02-02 11:03] LABS: ABSOLUTE BASOPHILS # (AUTO) 0.1 10^3/uL (0.0-0.2); ABSOLUTE EOSINOPHILS # (AUTO) 0.3 10^3/uL (0.0-0.6); ABSOLUTE LYMPHOCYTES (AUTO) 1.8 10^3/uL (0.5-4.7); ABSOLUTE MONOCYTES (AUTO) 0.7 10^3/uL (0.1-1.4); ABSOLUTE NEUT (AUTO) 3.4 10^3/uL (1.7-8.2); EOSINOPHILS % (AUTO) 4.2 % (0-6); HEMATOCRIT 34.6 % (36.0-47.0); HEMOGLOBIN 11.6 g/dL (12.0-15.5); HGB HCT DIFFERENCE 0.2; LYMPHOCYTES % (AUTO) 28.8 % (13-45); MEAN CORPUSCULAR HEMOGLOBIN 27.8 pg (27.0-33.4); MEAN CORPUSCULAR HGB CONC 33.5 g/dL (32.0-36.0); MEAN CORPUSCULAR VOLUME 83 fl (80-97); MONOCYTES % (AUTO) 11.7 % (3-13); RED BLOOD COUNT 4.16 10^6/uL (3.72-5.28); SEGMENTED NEUTROPHILS % (AUTO) 54.3 % (42-78); WHITE BLOOD COUNT 6.2 10^3/uL (4.0-10.5)
[2017-02-02] MEDS: HEPARIN SOD (PORCINE) 5,000 UNIT/ML 1 ML SYRINGE SUBCUT SCH ×2 (11:55→21:06)
[2017-02-02] MEDS ORDERED: ONDANSETRON HCL INJ/PF 4 MG/2 ML SDV IV PRN (13:50)
--- NOTE | 2017-02-02 13:57 | PDOC PROGRESS REPORT ---
Subjective Progress Note for:: 02/02/17 Subjective:: Feels better today. Still with diarrhea however. Some nausea as well. Tolerated liquid diet. Denies chills or fever. Physical Exam Vital Signs: Temp Pulse Resp BP Pulse Ox 98.5 F 70 18 144/81 H 100 02/02/17 11:31 02/02/17 11:31 02/02/17 11:31 02/02/17 11:31 02/02/17 11:31 Intake & Output 02/01/17 02/02/17 02/03/17 06:59 06:59 06:59 Intake Total 4658 2820 Output Total 275 450 Balance 4383 2370 Weight 72.5 kg 70.3 kg General appearance: PRESENT: no acute distress, cooperative Head exam: PRESENT: normocephalic Eye exam: PRESENT: EOMI Mouth exam: PRESENT: moist, neck supple Neck exam: ABSENT: JVD Respiratory exam: PRESENT: clear to auscultation latoya. ABSENT: rhonchi, wheezes Cardiovascular exam: PRESENT: RRR. ABSENT: gallop GI/Abdominal exam: PRESENT: soft. ABSENT: distended, tenderness Extremities exam: PRESENT: other - Trace edema bilateral Neurological exam: PRESENT: alert, awake, oriented to situation Skin exam: PRESENT: dry, warm. ABSENT: cyanosis Results Laboratory Results: 02/02/17 04:36 02/02/17 04:36 02/02/17 02/02/17 04:36 04:36 WBC 6.2 RBC 4.16 Hgb 11.6 L Hct 34.6 L MCV 83 MCH 27.8 MCHC 33.5 RDW 14.0 Plt Count 207 Seg Neutrophils % 54.3 Lymphocytes % 28.8 Monocytes % 11.7 Eosinophils % 4.2 Basophils % 1.0 Absolute Neutrophils 3.4 Absolute Lymphocytes 1.8 Absolute Monocytes 0.7 Absolute Eosinophils 0.3 Absolute Basophils 0.1 Sodium 136.8 L Potassium 3.5 L Chloride 106 Carbon Dioxide 20 L Anion Gap 11 BUN 6 L Creatinine 0.59 Est GFR ( Amer) > 60 Est GFR (Non-Af Amer) > 60 Glucose 82 Calcium 8.0 L 01/30/17 08:22 Stool - Stool - Final 01/30/17 08:22 Stool - Stool Stool Culture - Final NO SALMONELLA, SHIGELLA, CAMPYLOBACTER, OR E.COLI 0157 RECOVERED. NEGATIVE FOR SHIGA TOXINS 1&2. 01/30/17 01/30/17 01/30/17 00:40 00:40 06:43 Creatine Kinase 148 H CK-MB (CK-2) 6.45 H Troponin I < 0.012 0.012 Impressions: Renal Ultrasound 01/29/17 00:00 IMPRESSION: No significant renal abnormalities were identified. Other findings as noted above Assessment & Plan - Diagnosis (1) ARF (acute renal failure) Qualifiers: Acute renal failure type: unspecified Qualified Code(s): N17.9 - Acute kidney failure, unspecified Is this a current diagnosis for this admission?: Yes (2) Diarrhea Qualifiers: Diarrhea type: unspecified type Qualified Code(s): R19.7 - Diarrhea, unspecified Is this a current diagnosis for this admission?: Yes (3) Leukocytosis Qualifiers: Leukocytosis type: bandemia Qualified Code(s): D72.825 - Bandemia Is this a current diagnosis for this admission?: Yes (4) Prolapse of bladder Is this a current diagnosis for this admission?: Yes (5) Hypocalcemia Is this a current diagnosis for this admission?: Yes (6) Hypothyroidism Qualifiers: Hypothyroidism type: acquired Qualified Code(s): E03.9 - Hypothyroidism, unspecified Is this a current diagnosis for this admission?: Yes (7) Anxiety and depression Is this a current diagnosis for this admission?: Yes (8) Multiple sclerosis Is this a current diagnosis for this admission?: Yes - Time Time Spent with patient: 15-24 minutes - Plan Summary Plan Summary: Continue current medication. We'll try to add vancomycin orally. Advance diet to soft mechanical. Continue gentle IV fluids. Replace electrolytes and monitor.
[2017-02-02] MEDS: VANCOMYCIN HCL INJ 500 MG VIAL PO SCH ×2 (15:38→21:05)
[2017-02-02] MEDS: PHOSPHORUS #1 250 MG TABLET PO SCH (15:41)
[2017-02-02] MEDS: VENLAFAXINE HCL 75 MG CAP.SR.24H PO SCH (19:09)
[2017-02-03] MEDS: METRONIDAZOLE 500 MG TABLET PO SCH ×3 (00:31→13:22)
[2017-02-03] MEDS: VANCOMYCIN HCL INJ 500 MG VIAL PO SCH ×2 (02:22→08:40)
[2017-02-03] MEDS: LEVOTHYROXINE SODIUM 0.075 MG TABLET PO SCH (08:38)
[2017-02-03] MEDS: TIZANIDINE HCL 4 MG TABLET PO SCH (08:39)
[2017-02-03] MEDS: PHOSPHORUS #1 250 MG TABLET PO SCH (08:40)
[2017-02-03] MEDS: DALFAMPRIDINE 10 MG PO SCH (10:47)
--- NOTE | 2017-02-03 10:47 | PDOC DISCHARGE SUMMARY ---
General - Admit/Disc Date/PCP Admission Date/Primary Care Provider: 01/29/17 23:35 Discharge Date: 02/03/17 - Discharge Diagnosis (1) ARF (acute renal failure) Is this a current diagnosis for this admission?: Yes (2) Diarrhea Is this a current diagnosis for this admission?: Yes (3) Leukocytosis Is this a current diagnosis for this admission?: Yes (4) Prolapse of bladder Is this a current diagnosis for this admission?: Yes (5) Hypocalcemia Is this a current diagnosis for this admission?: Yes (6) Hypothyroidism Is this a current diagnosis for this admission?: Yes (7) Anxiety and depression Is this a current diagnosis for this admission?: Yes (8) Multiple sclerosis Is this a current diagnosis for this admission?: Yes - Additional Information Resuscitation Status: Full Code Discharge Diet: Regular, Other (Comments) - increase oral fluid intake Discharge Activity: Activity As Tolerated, Balance Activity w/Rest Home Medications: Cholecalciferol (Vitamin D3) [D3-2000] 2,000 unit PO QAM 01/30/17 Dalfampridine [Ampyra] 10 mg PO BID 01/30/17 Glatiramer Acetate [Copaxone Inj/Pf 20 mg/1Ml Disp.syrg] 20 mg SQ DAILY Levothyroxine Sodium [Synthroid 0.075 mg Tablet] 0.075 mg PO QAM 01/30/17 Lutein/Zeaxanthin [Lutein-Zeaxanthin 25-5 mg Sfgl] 1 cap PO QAM 01/30/17 Omeprazole 20 mg PO QAM 01/30/17 Tizanidine HCl [Zanaflex] 2 mg PO NOON PRN 01/30/17 Tizanidine HCl [Zanaflex] 2 mg PO QAM 01/30/17 Tizanidine HCl [Zanaflex] 4 mg PO QHS 01/30/17 Venlafaxine HCl [Venlafaxine HCl ER] 150 mg PO QAM 01/30/17 Acidoph/L.bulg/Bif.b/S.thermop [Bacid Caplet] 1 each PO BID #16 tablet 02/03/17 Loperamide HCl [Imodium 2 mg Capsule] 2 mg PO Q6HP PRN capsule 02/03/17 Metronidazole [Flagyl 500 mg Tablet] 500 mg PO Q6H #32 tablet 02/03/17 History of Present Illness Patient complains of: Diarrhea History of Present Illness: SOFY CARRASCO is a 61 year old female, with multiple sclerosis, recently treated for skin infection with antibiotics started having diarrhea brought to the emergency room because of persistence, with associated increasing weakness. Patient was found to have elevated creatinine and was referred for admission. For details please refer to history and physical examination performed by the admitting physician. Hospital Course Hospital Course: The patient was admitted to telemetry. The patient was hydrated with intravenous fluids. Electrolytes were monitored and were replaced accordingly. Patient was started on Flagyl, lactobacillus was likewise added. Stool for Clostridium difficile toxin was positive. Nephrology was consulted for the renal failure, hydration was continued, renal ultrasound did not reveal any obstruction. The patient subsequently improved with time. Creatinine normalized. Diarrhea slowly improved with addition of antimotility agent. Patient diet was therefore advanced and she tolerated it well. The rest of hospital stays unremarkable. She was eventually discharged home improved with above instructions. Physical Exam Vital Signs: Temp Pulse Resp BP Pulse Ox 98.0 F 73 20 142/70 H 99 02/03/17 07:59 02/03/17 07:59 02/03/17 07:59 02/03/17 07:59 02/03/17 07:59 Intake & Output 02/02/17 02/03/17 02/04/17 06:59 06:59 06:59 Intake Total 2820 1892 Output Total 450 850 Balance 2370 1042 Weight 70.3 kg 71.2 kg General appearance: PRESENT: no acute distress, cooperative Head exam: PRESENT: normocephalic Eye exam: PRESENT: EOMI Mouth exam: PRESENT: moist, neck supple Neck exam: ABSENT: JVD Respiratory exam: PRESENT: clear to auscultation latoya Cardiovascular exam: PRESENT: RRR. ABSENT: gallop GI/Abdominal exam: PRESENT: soft. ABSENT: distended Extremities exam: PRESENT: other - Trace pretibial edema Neurological exam: PRESENT: alert, awake, oriented to situation Skin exam: PRESENT: dry, warm. ABSENT: cyanosis Results Laboratory Results: 02/02/17 04:36 02/02/17 04:36 02/02/17 04:36 WBC 6.2 RBC 4.16 Hgb 11.6 L Hct 34.6 L MCV 83 MCH 27.8 MCHC 33.5 RDW 14.0 Plt Count 207 Seg Neutrophils % 54.3 Lymphocytes % 28.8 Monocytes % 11.7 Eosinophils % 4.2 Basophils % 1.0 Absolute Neutrophils 3.4 Absolute Lymphocytes 1.8 Absolute Monocytes 0.7 Absolute Eosinophils 0.3 Absolute Basophils 0.1 01/30/17 01/30/17 01/30/17 00:40 00:40 06:43 Creatine Kinase 148 H CK-MB (CK-2) 6.45 H Troponin I < 0.012 0.012 Impressions: Renal Ultrasound 01/29/17 00:00 IMPRESSION: No significant renal abnormalities were identified. Other findings as noted above Qualifiers PATEINT BEING DISCHARGED WITH ANY OF THE FOLLOWING DIAGNOSIS?: No Plan Discharge Plan: Follow-up with primary care physician in one to 2 weeks. Time Spent: Less than 30 Minutes
[2017-02-03] MEDS: GLATIRAMER ACETATE SUBCUT SCH (10:49)
[2017-02-03] MEDS: HEPARIN SOD (PORCINE) 5,000 UNIT/ML 1 ML SYRINGE SUBCUT SCH (10:49)
[2017-02-03] MEDS: LACTOBACILLUS ACIDOPHILUS 250 MG TAB PO SCH (10:49)
[2017-02-03] MEDS: DISP SYRIN SUBCUT SCH (10:49)
[2017-02-03] MEDS ORDERED: POTASSIUM CHLORIDE 10 MEQ TABLET.SA PO ONE (11:15)
[2017-02-03 11:42] VITALS: BP 95/61
== END 2017-02-03 15:40 | disposition home or self-care (01) | DRG 372 ==
LOC: ER 17:49 → EH 22:02 → UNDOADMIN 22:02 → EH 23:35 → ICU 01-30 08:31 → 3N 01-31 04:41
PROVIDERS: ADMIT Family Medicine; ATTEND Family Medicine
DX: A04.7 Enterocolitis due to Clostridium difficile (principal); N17.9 Acute kidney failure, unspecified; N81.10 Cystocele, unspecified; E83.51 Hypocalcemia; E83.42 Hypomagnesemia; F41.1 Generalized anxiety disorder; R21 Rash and other nonspecific skin eruption; E03.9 Hypothyroidism, unspecified; F32.9 Major depressive disorder, single episode, unspecified; G35 Multiple sclerosis; M19.90 Unspecified osteoarthritis, unspecified site; Z79.899 Other long term (current) drug therapy; Z88.1 Allergy status to other antibiotic agents; Z88.0 Allergy status to penicillin
CPT/HCPCS: 36415; 76770; 80048; 80053; 81001; 82550; 82553; 83735; 84100; 84443; 84484; 85025; 87040; 87045; 87205; 87493; 89055; 93005; 93010; 96361; 96374; 96375; 99291; J1200; J1644; J2405; J3370; J3475; J3490; J7030; J7120; J7512